=== PATIENT | male | born 1950 | race Caucasian/White ===

== ENCOUNTER → 2017-11-30 | Outpatient (CLI) | payer MEDICARE | END | disposition home or self-care (01) | LOC: CFH 13:51 | PROVIDERS: ATTEND Internal Medicine Cardiovascular Disease | DX: I35.0 Nonrheumatic aortic (valve) stenosis (principal); I35.8 Other nonrheumatic aortic valve disorders; I10 Essential (primary) hypertension; E78.5 Hyperlipidemia, unspecified | CPT/HCPCS: 93306 ==

== ENCOUNTER 2018-07-28 09:49 | Day surgery (SDC) | payer MEDICARE ==
[~2018-07-28] VITALS: Ht 182.9 cm; Wt 102.3 kg
[2018-07-28] MEDS ORDERED: SODIUM CHLORIDE 0.9% 1,000 ML IV SCH (10:11)
[2018-07-28 10:18] VITALS: BP 151/90
[2018-07-28] MEDS ORDERED: LISI-170 PO (10:30)
[2018-07-28] MEDS ORDERED: AMLO-150 PO (10:30)
[2018-07-28] MEDS ORDERED: ASPI-496 PO (10:30)
[2018-07-28] MEDS ORDERED: ATOR40TA PO (10:30)
[2018-07-28] MEDS ORDERED: MIDAZOLAM 1 MG/ML, 5ML ONE (11:43)
[2018-07-28] MEDS ORDERED: FENTANYL PF 100 MCG/2ML ONE ×2 (11:43→12:25)
[2018-07-28] MEDS ORDERED: LIDOCAINE 1%, 20ML ONE (11:43)
[2018-07-28] MEDS ORDERED: ONDANSETRON 2MG/ML, 2ML ONE (12:07)
[2018-07-28] MEDS ORDERED: DIPHENHYDRAMINE 50 MG/ML, 1ML ONE (12:26)
== END 2018-07-28 16:37 | disposition home or self-care (01) ==
LOC: CACL 09:49 → 5SO 12:37 → CACL 16:37
PROVIDERS: ATTEND Internal Medicine Cardiovascular Disease
DX: I25.10 Atherosclerotic heart disease of native coronary artery without angina pectoris (principal); I35.0 Nonrheumatic aortic (valve) stenosis; I10 Essential (primary) hypertension; E78.00 Pure hypercholesterolemia, unspecified; Z79.82 Long term (current) use of aspirin; Z87.891 Personal history of nicotine dependence
CPT/HCPCS: 93458; 99156; C1769; C1894; J1200; J2250; J2405; J3010; J3490; Q9967; G0378

== ENCOUNTER 2018-12-29 10:00 | Outpatient (CLI) | payer MEDICARE ==
[~2018-12-29 10:00] MED LIST: AMLO-150 PO; ASPI-496 PO; ATOR40TA PO; LISI-170 PO
[2018-12-29] MEDS ORDERED: METOPROLOL 1 MG/ML, 5ML ONE (11:08)
[2018-12-29] MEDS ORDERED: VISIPAQUE 320 MG/ML, 150ML BOTTLE ONE (11:38)
[2019-01-04] MEDS ORDERED: FENTANYL PF 250 MCG/5ML ONE (09:14)
[2019-01-04] MEDS ORDERED: FENTANYL PF 100 MCG/2ML ONE (09:52)
[2019-01-04] MEDS ORDERED: SUCCINYLCHOLINE 20 MG/ML, 10ML ONE (09:56)
[2019-01-04] MEDS ORDERED: PROPOFOL 10 MG/ML, 20ML ONE (09:56)
[2019-01-04] MEDS ORDERED: ROCURONIUM 10MG/ML,5ML ONE (09:56)
== END 2018-12-29 23:59 | disposition home or self-care (01) ==
LOC: RAD 10:00
PROVIDERS: ATTEND Internal Medicine Cardiovascular Disease
DX: I65.23 Occlusion and stenosis of bilateral carotid arteries (principal); I70.8 Atherosclerosis of other arteries; J43.9 Emphysema, unspecified; F17.210 Nicotine dependence, cigarettes, uncomplicated; I10 Essential (primary) hypertension
CPT/HCPCS: 36415; 71275; 74174; 82565; 93880; 94060; 94726; 94729; Q9967

== ENCOUNTER 2019-01-04 06:53 | Inpatient (IN) | payer MEDICARE ==
[~2019-01-04] VITALS: Ht 182.9 cm; Wt 101.7 kg
[2019-01-04] MEDS ORDERED: SODIUM CHLORIDE 0.9% 1,000 ML IV ONE (07:22)
[2019-01-04 07:26] VITALS: BP 138/76
[2019-01-04] MEDS ORDERED: CHLORHEXIDINE 15 ML UDC MM PRN (07:30)
[2019-01-04] MEDS: PLEASE ENTER HEIGHT AND WEIGHT MC SCH ×2 (07:30→15:30)
[2019-01-04] MEDS ORDERED: ONDANSETRON 2MG/ML, 2ML IVPush PRN ×2 (07:30→10:30)
[2019-01-04 07:53] LABS: BASOPHILS # (AUTO) 0.07 x10^3/uL (0-0.1); BASOPHILS % (AUTO) 1 % (0-1); EOSINOPHILS # (AUTO) 0.25 x10^3/uL (0-0.4); EOSINOPHILS % (AUTO) 3 % (1-7); LYMPHOCYTES # (AUTO) 1.52 x10^3/uL (1-3.4); LYMPHOCYTES % (AUTO) 20 % (22-44); MD NO; MEAN CORPUSCULAR HEMOGLOBIN 30.3 pg (27.5-34.5); MEAN CORPUSCULAR HGB CONC 33.2 g/dL (33.2-36.2); MEAN CORPUSCULAR VOLUME 91.4 fL (81-97); MEAN PLATELET VOLUME 7.7 fL (7.4-10.4); MONOCYTES # (AUTO) 0.56 x10^3/uL (0.2-0.8); MONOCYTES % (AUTO) 7 % (2-9); NEUTROPHILS # (AUTO) 5.12 x10^3/uL (1.8-6.8); NEUTROPHILS % (AUTO) 68 % (42-75); PLATELET COUNT 206 x10^3/uL (130-400); RED BLOOD COUNT 4.97 x10^6/uL (4.38-5.82); RED CELL DISTRIBUTION WIDTH 14.9 % (9.4-14.8)
[2019-01-04 08:03] LABS: ALANINE AMINOTRANSFERASE 21 U/L (12-78); ALBUMIN 3.4 g/dL (3.4-5.0); ANION GAP 5 mmol/L (5-15); CALCIUM 8.8 mg/dL (8.5-10.1); CHLORIDE 106 mmol/L (98-107)
[2019-01-04 08:07] LABS: ALKALINE PHOSPHATASE 125 U/L (45-117); BILIRUBIN,TOTAL 0.6 mg/dL (0.2-1.0); TOTAL PROTEIN 7.7 g/dL (6.4-8.2)
[2019-01-04 08:11] LABS: INTERNATIONAL NORMALIZED RATIO 0.98 (0.93-1.1); PROTHROMBIN TIME 10.3 Seconds (9.6-11.5)
[2019-01-04] MEDS ORDERED: ONDANSETRON 2MG/ML, 2ML ONE (09:13)
[2019-01-04] MEDS ORDERED: ROCURONIUM 10 MG/ML,10ML ONE (09:13)
[2019-01-04] MEDS ORDERED: CEFAZOLIN 1,000 MG ONE (09:13)
[2019-01-04] MEDS ORDERED: PHENYLEPHRINE 10 MG/ML ONE (09:13)
[2019-01-04] MEDS ORDERED: PROPOFOL 10 MG/ML, 20ML ONE (09:13)
[2019-01-04] MEDS ORDERED: DEXAMETHASONE 4 MG/ML, 1ML ONE (09:13)
[2019-01-04] MEDS ORDERED: SUCCINYLCHOLINE 20 MG/ML, 10ML ONE (09:13)
[2019-01-04] MEDS ORDERED: HYDROcodone/APAP 5/325 TABLET PO PRN (10:30)
[2019-01-04] MEDS: LISINOPRIL 20 MG TABLET PO SCH (10:30)
[2019-01-04] MEDS ORDERED: LABETALOL 20 MG/4 ML IVPush PRN (10:30)
[2019-01-04] MEDS ORDERED: hydrALAzine 20 MG/ML, 1ML IVPush PRN (10:30)
[2019-01-04] MEDS ORDERED: ACETAMINOPHEN 325 MG TABLET PO PRN (10:30)
[2019-01-04] MEDS ORDERED: CLOPIDOGREL 300 MG TABLET PO ONE (10:30)
[2019-01-04] MEDS: AMLODIPINE 5 MG TABLET PO SCH (10:30)
[2019-01-04 12:30] VITALS: BP 121/80
[2019-01-04 13:25] VITALS: BP 116/76
[2019-01-04 19:46] VITALS: BP 122/79
[2019-01-04] MEDS ORDERED: ATORVASTATIN 40 MG TABLET PO SCH (21:00)
[2019-01-05 01:43] VITALS: BP 111/72
[2019-01-05 06:16] LABS: BASOPHILS # (AUTO) 0.09 x10^3/uL (0-0.1); BASOPHILS % (AUTO) 1 % (0-1); EOSINOPHILS # (AUTO) 0.08 x10^3/uL (0-0.4); EOSINOPHILS % (AUTO) 1 % (1-7); LYMPHOCYTES # (AUTO) 1.06 x10^3/uL (1-3.4); LYMPHOCYTES % (AUTO) 8 % (22-44); MD NO; MEAN CORPUSCULAR HEMOGLOBIN 30.8 pg (27.5-34.5); MEAN CORPUSCULAR HGB CONC 33.4 g/dL (33.2-36.2); MEAN CORPUSCULAR VOLUME 92.3 fL (81-97); MEAN PLATELET VOLUME 7.8 fL (7.4-10.4); MONOCYTES # (AUTO) 0.86 x10^3/uL (0.2-0.8); MONOCYTES % (AUTO) 7 % (2-9); NEUTROPHILS # (AUTO) 10.72 x10^3/uL (1.8-6.8); NEUTROPHILS % (AUTO) 84 % (42-75); PLATELET COUNT 160 x10^3/uL (130-400); RED BLOOD COUNT 4.47 x10^6/uL (4.38-5.82); RED CELL DISTRIBUTION WIDTH 14.5 % (9.4-14.8)
[2019-01-05 06:25] LABS: ANION GAP 8 mmol/L (5-15); CALCIUM 8.8 mg/dL (8.5-10.1); CHLORIDE 104 mmol/L (98-107)
[2019-01-05 06:52] LABS: CREATININE 1.06 mg/dL (0.7-1.3)
[2019-01-05 07:23] VITALS: BP 138/82
[2019-01-05] MEDS: AMLODIPINE 5 MG TABLET PO SCH (07:32)
[2019-01-05] MEDS: LISINOPRIL 20 MG TABLET PO SCH (07:32)
[2019-01-05] MEDS ORDERED: CLOPIDOGREL 75 MG TABLET PO SCH (09:00)
[2019-01-05] MEDS ORDERED: ASPIRIN 81 MG TABLET EC PO SCH (09:00)
[2019-01-05] MEDS ORDERED: CLOP75TA PO (12:08)
[2019-01-05] MEDS ORDERED: ACET325T26 PO (12:08)
[2019-01-05] MEDS ORDERED: ASPI81TA45 PO (12:08)
== END 2019-01-05 14:56 | DRG 266 ==
LOC: ORIP 06:53 → ICU 10:40 → 5SO 12:28 → DCLOUNGE 01-05 14:41
PROVIDERS: ADMIT Internal Medicine Cardiovascular Disease; ATTEND Internal Medicine Cardiovascular Disease
PROC: B246ZZ4 Ultrasonography of Right and Left Heart, Transesophageal (ICD-10-PCS; 2019-01-04)
PROC: 4A133B1 Monitoring of Arterial Pressure, Peripheral, Percutaneous Approach (ICD-10-PCS; 2019-01-04)
PROC: B3101ZZ Fluoroscopy of Thoracic Aorta using Low Osmolar Contrast (ICD-10-PCS; 2019-01-04)
PROC: 5A1223Z Performance of Cardiac Pacing, Continuous (ICD-10-PCS; 2019-01-04)
PROC: 02RF38Z Replacement of Aortic Valve with Zooplastic Tissue, Percutaneous Approach (ICD-10-PCS; principal; 2019-01-04 09:30)
DX: I35.0 Nonrheumatic aortic (valve) stenosis (principal); Z00.6 Encounter for examination for normal comparison and control in clinical research program; I50.33 Acute on chronic diastolic (congestive) heart failure; I11.0 Hypertensive heart disease with heart failure; E78.5 Hyperlipidemia, unspecified; E03.9 Hypothyroidism, unspecified; I25.10 Atherosclerotic heart disease of native coronary artery without angina pectoris; J44.9 Chronic obstructive pulmonary disease, unspecified; E78.00 Pure hypercholesterolemia, unspecified; Z87.891 Personal history of nicotine dependence
CPT/HCPCS: 33361; 36415; 80048; 80053; 83880; 85025; 85347; 85610; 85730; 86850; 86900; 86923; 93005; 93306; 93312; 93321; 93325; 93355; 93591; C1760; C1769; C1894; G0378; J0690; J1100; J2405; J2704; J3010; J0330; J2370; J7030; Q9967

== ENCOUNTER 2019-02-22 10:27 | Outpatient (CLI) | payer MEDICARE ==
[~2019-02-22 10:27] MED LIST changes: +ACET325T26 PO; +ASPI81TA45 PO; +CLOP75TA PO
== END 2019-02-22 23:59 | disposition home or self-care (01) ==
LOC: CVU 10:27
PROVIDERS: ATTEND Internal Medicine Cardiovascular Disease
DX: I05.9 Rheumatic mitral valve disease, unspecified (principal); I70.8 Atherosclerosis of other arteries; I10 Essential (primary) hypertension; E78.5 Hyperlipidemia, unspecified; Z87.891 Personal history of nicotine dependence
CPT/HCPCS: 93306

== ENCOUNTER → 2019-12-07 | Outpatient (CLI) | payer MEDICARE ==
[2019-12-07 13:20] LABS: BASOPHILS # (AUTO) 0.05 x10^3/uL (0-0.1); BASOPHILS % (AUTO) 1 % (0-1); EOSINOPHILS # (AUTO) 0.21 x10^3/uL (0-0.4); EOSINOPHILS % (AUTO) 3 % (1-7); LYMPHOCYTES # (AUTO) 1.89 x10^3/uL (1-3.4); LYMPHOCYTES % (AUTO) 23 % (22-44); MD NO; MEAN CORPUSCULAR HEMOGLOBIN 30.8 pg (27.5-34.5); MEAN CORPUSCULAR HGB CONC 33.2 g/dL (33.2-36.2); MEAN CORPUSCULAR VOLUME 92.8 fL (81-97); MEAN PLATELET VOLUME 8.1 fL (7.4-10.4); MONOCYTES # (AUTO) 0.44 x10^3/uL (0.2-0.8); MONOCYTES % (AUTO) 5 % (2-9); NEUTROPHILS # (AUTO) 5.79 x10^3/uL (1.8-6.8); NEUTROPHILS % (AUTO) 69 % (42-75); PLATELET COUNT 175 x10^3/uL (130-400); RED BLOOD COUNT 4.99 x10^6/uL (4.38-5.82); RED CELL DISTRIBUTION WIDTH 15.9 % (9.4-14.8)
[2019-12-07 13:30] LABS: CHLORIDE 106 mmol/L (98-107)
[2019-12-07 13:37] LABS: ALANINE AMINOTRANSFERASE 18 U/L (12-78); ALBUMIN 3.6 g/dL (3.4-5.0); ALKALINE PHOSPHATASE 144 U/L (45-117); ANION GAP 5 mmol/L (5-15); BILIRUBIN,TOTAL 0.7 mg/dL (0.2-1.0); CHOL/HDL RATIO 1.7; CHOLESTEROL, TOTAL 155 mg/dL (140-239); CREATININE 1.07 mg/dL (0.7-1.3); HDL CHOL % 57 % (26-37); HDL CHOLESTEROL (DIRECT) 89 mg/dL (40-60); LDL CHOLESTEROL,CALCULATED 57 mg/dL (54-169); LDL/HDL RATIO 0.6 (0.5-3.0); TOTAL PROTEIN 7.9 g/dL (6.4-8.2); TRIGLYCERIDES 47 mg/dL (50-200); VLDL CHOLESTEROL 9 mg/dL (0-25)
== END | disposition home or self-care (01) ==
LOC: CFH 10:32
PROVIDERS: ATTEND Internal Medicine Cardiovascular Disease
DX: I35.0 Nonrheumatic aortic (valve) stenosis (principal); I10 Essential (primary) hypertension; Z95.2 Presence of prosthetic heart valve
CPT/HCPCS: 36415; 80053; 80061; 85025

== ENCOUNTER → 2020-01-31 | Outpatient (CLI) | payer MEDICARE | END | disposition home or self-care (01) | LOC: CVU 10:42 | PROVIDERS: ATTEND Internal Medicine Cardiovascular Disease | DX: I34.8 Other nonrheumatic mitral valve disorders (principal); I11.9 Hypertensive heart disease without heart failure; R06.02 Shortness of breath | CPT/HCPCS: 93306 ==